=== PATIENT | male | born 1970 | race Two or more races ===

== ENCOUNTER 2018-05-08 05:24 | Day surgery (SDC) | payer OTHER ==
[~2018-05-08] VITALS: Ht 175.3 cm; Wt 113.4 kg
[2018-05-08] MEDS ORDERED: PERCOCET 5-3251 EACH PO (15:16)
[2018-05-08] MEDS ORDERED: HIBICLENS118 ML TOP (15:17)
== END 2018-05-08 16:05 | disposition home or self-care (01) ==
LOC: ER 05:24 → CIR.AMB 08:11
DX: N49.2 Inflammatory disorders of scrotum (principal); K64.8 Other hemorrhoids

== ENCOUNTER 2018-08-06 08:09 | Outpatient (CLI) | payer OTHER ==
[~2018-08-06 08:09] MED LIST: HIBICLENS118 ML TOP; PERCOCET 5-3251 EACH PO
== END 2018-08-06 08:18 | disposition home or self-care (01) ==
LOC: LAB 08:09
DX: N20.0 Calculus of kidney (principal)

== ENCOUNTER 2018-11-15 12:12 | Outpatient (CLI) | payer OTHER | END 2018-11-15 12:19 | disposition home or self-care (01) | LOC: LAB 12:12 | DX: L02.818 Cutaneous abscess of other sites (principal) ==

== ENCOUNTER 2018-11-19 11:24 | Outpatient (CLI) | payer OTHER | END 2018-11-19 11:37 | disposition home or self-care (01) | LOC: RX STUDY 11:24 | DX: L02.215 Cutaneous abscess of perineum (principal) | CPT/HCPCS: 51600; 74455; Q9958 ==

== ENCOUNTER 2019-01-22 05:00 | Day surgery (SDC) | payer OTHER ==
[~2019-01-22 05:00] MED LIST changes: +ACID REDUCER20 M1 PO
== END 2019-01-22 15:30 | disposition home or self-care (01) ==
LOC: CIR.AMB 05:00
DX: L72.0 Epidermal cyst (principal); N50.89 Other specified disorders of the male genital organs